=== PATIENT | female | born 1950 | race Caucasian/White ===

== ENCOUNTER 2017-01-13 11:39 | Outpatient (CLI) | payer MEDICARE, OTHER ==
[~2017-01-13] VITALS: Ht 152.4 cm; Wt 105.3 kg
[~2017-01-13 11:39] MED LIST: ALEN70TA47 PO; ASP81CT PO; BUDE180A IH; CALC-250 PO; CLIN150C2 PO; DILT180C PO; HYDR-3454 PO; HYDR-3720 PO; MELO-195 PO; POTA10TA10 PO; POTA99TA18 PO; RANI-514 PO; RANI150T90 PO; SERT100T8 PO; SIMV40TA4 PO; TRIA1CAP4 PO
[2017-01-13] MEDS ORDERED: LISI10TA2 PO (11:53)
[2017-01-13 11:58] VITALS: BP 111/67
== END 2017-01-13 12:25 | disposition home or self-care (01) ==
LOC: PREOP 11:39
PROVIDERS: ATTEND Podiatrist Foot & Ankle Surgery
DX: Z01.818 Encounter for other preprocedural examination (principal); Z11.2 Encounter for screening for other bacterial diseases; M20.22 Hallux rigidus, left foot
CPT/HCPCS: 87081

== ENCOUNTER 2017-01-16 06:00 | Day surgery (SDC) | payer MEDICARE, OTHER ==
[~2017-01-16] VITALS: Ht 152.4 cm; Wt 105.3 kg
[~2017-01-16 06:00] MED LIST changes: +LISI10TA2 PO
--- OUTSIDE RECORDS SUMMARY | 2017-01-16 06:10 | XMS REPORT | Continuity of Care Document ---
Author Author [facility] Organization [facility] Address Unknown Phone Unavailable Care Team Providers Care Clerk Travel Reservations Name Role Phone BLAINE MOHAN MD PCP Insurance Providers Payer Name Policy Number Subscriber Name Relationship [employer] [id number] Kera Molina 18 Self / Same As Patient Enter Insurance Name [id number] Kera Molina 18 Self / Same As Patient Advance Directives Directive Response Recorded Date/Time Advance Directives No 01/13/17 11:51am Health Care Power of Marking Stitcher No 01/13/17 11:51am Organ Donor Yes 01/13/17 11:51am Resuscitation Status Full Code 01/13/17 11:51am Problems No problem information available. Medications Current Home Medications Medication Dose Units Route Directions Days/Qty Instructions Start Date Calcium Carbonate/Vitamin D3 1 Each 1 Each Oral Daily 01/28/13 Sertraline Hcl 100 Mg 100 Mg Oral Daily 01/28/13 Aspirin 81 Mg 81 Mg Oral Daily 01/28/13 Simvastatin 40 Mg 40 Mg Oral Bedtime 01/28/13 Alendronate Sodium 70 Mg 70 Mg Oral Weekly FRIDAY AM 01/28/13 Potassium Chloride 10 Meq 10 Meq Oral Twice A Day 12/18/15 Ranitidine Hcl (Ranitidine) 75 Mg 75 Mg Oral Daily 12/18/15 Triamterene/Hydrochlorothiazid 1 Each 1 Each Oral As Directed Lisinopril 10 Mg 10 Mg Oral Daily 01/13/17 Past Home Medications Medication Directions Ordered Status Potassium Gluconate 99 Mg Tablet.er, 99 Mg Oral Daily 01/28/13 Discontinued Ranitidine Hcl 150 Mg Tablet, 150 Mg Oral Daily 01/28/13 Discontinued Meloxicam (Mobic) 15 Mg Tablet, 1 Each Oral Daily 01/28/13 Discontinued Diltiazem Hcl (Cardizem Cd) 180 Mg Cap.sr.24h, 1 Each Oral Daily 01/28/13 Discontinued Budesonide 180 Mcg Aer.pow.ba, 1 - 2 Puff Inhalation As Needed 01/28/13 Discontinued Acetaminophen/Hydrocodone Bitart 1 Ea Tab, 1 Ea Oral Q 4 - 6 Hrs Prn Discontinued Clindamycin Hcl 150 Mg Capsule, 1 Cap Oral Four Times Daily 12/25/15 Discontinued Hydrocodone/Acetaminophen 1 Each Tablet, 1-2 Tab Oral Q4-6HR as needed for Pain 12/25/15 Discontinued Social History Social History Problem Response Recorded Date/Time Alcohol Use Denies Use 12/25/2015 7:00am Recreational Drug Use No 12/25/2015 7:00am Recent Foreign Travel [place] summer 201102/02/2013 12:15pm Recent Infectious Disease Exposure No 02/02/2013 12:15pm Hospitalization with Isolation Denies 02/04/2013 4:37pm Sexually Transmitted Disease No 01/13/2017 11:51am HIV/AIDS No 01/13/2017 11:51am Smoking Status Never a Smoker 01/13/2017 11:51am Recent Hopitalizations No 01/13/2017 11:51am Sexually Transmitted Disease No 01/13/2017 11:51am Hospitalization with Isolation Denies 02/04/2013 4:37pm Query Response Start Date Stop Date Smoking Status Never a Smoker Hospital Discharge Instructions No hospital discharge instructions. Plan of Care Discharge Date 01/13/17 12:25pm Prescriptions See Medication Section Functional Status No functional status results. Allergies, Adverse Reactions, Alerts Allergen Type Severity Reaction Status Last Updated Penicillins ([id number]) Allergy Unknown HIVES, SWELLING Active 01/13/17 Immunizations No immunization records. Vital Signs Acute Vital Signs Vital Response Date/Time Pulse Rate (adult) 68 bpm (60 - 90) 01/13/2017 11:58am Respiratory Rate 16 bpm (12 - 24) 01/13/2017 11:58am O2 Sat by Pulse Oximetry 98 % (88 - 100) 01/13/2017 11:58am Blood Pressure 111/67 mm Hg 01/13/2017 11:58am Blood Pressure Mean 82 mm Hg 01/13/2017 11:58am Pain Numeric Pain Scale 0-No Pain 01/13/2017 11:58am Height (Feet) 5 feet 01/13/2017 11:45am Height (Inches) 0.00 inches 01/13/2017 11:45am Height (Calculated Centimeters) 152.854455 cm 01/13/2017 11:45am Weight (Pounds) 232 pounds 01/13/2017 11:45am Weight (Ounces) 1.0 oz 01/13/2017 11:45am Weight (Calculated Grams) 465198.78 gm 01/13/2017 11:45am Weight (Calculated Kilograms) 105.609749 kilograms 01/13/2017 11:45am Calculated BMI 45.3 01/13/2017 11:45am Results No known relevant diagnostic tests, laboratory data and/or discharge summary. Procedures No known history of procedures. Encounters Encounter Location Arrival/Admit Date Discharge/Depart Date Attending Provider Registered Clinic [facility] 01/13/17 11:39am JORDEN BUCK DPM
--- OUTSIDE RECORDS SUMMARY | 2017-01-16 06:10 | XMS REPORT | Continuity of Care Document ---
Author Author [facility] Organization [facility] Address Unknown Phone Unavailable Care Team Providers Care Railroad Track Inspector Name Role Phone BLAINE MOHAN MD PCP Insurance Providers Payer Name Policy Number Subscriber Name Relationship [employer] [id number] Kera Molina 18 Self / Same As Patient Enter Insurance Name [id number] Kera Molina 18 Self / Same As Patient Advance Directives Directive Response Recorded Date/Time Advance Directives No 01/13/17 11:51am Health Care Power of Cds Sales Advisor No 01/13/17 11:51am Organ Donor Yes 01/13/17 [...] Type Severity Reaction Status Last Updated Penicillins ([id number]) Allergy Unknown HIVES, SWELLING Active 01/13/17 Immunizations [...] 0.00 inches 01/13/2017 11:45am Height (Calculated Centimeters) 152.826311 cm 01/13/2017 11:45am Weight (Pounds) 232 pounds 01/13/2017 11:45am Weight (Ounces) 1.0 oz 01/13/2017 11:45am Weight (Calculated Grams) 124907.78 gm 01/13/2017 11:45am Weight (Calculated Kilograms) 105.583487 kilograms 01/13/2017 11:45am Calculated BMI 45.3 01/13/2017 11:45am Results No known relevant diagnostic tests, laboratory data and/or discharge summary. Procedures No known history of procedures. Encounters Encounter Location Arrival/Admit Date Discharge/Depart Date Attending Provider Registered Clinic [facility] 01/13/17 11:39am JORDEN BUCK DPM
[2017-01-16 06:30] VITALS: BP 145/78
[2017-01-16] MEDS ORDERED: CLINDAMYCIN 600 MG/50 ML IVPB 50 ML IV ONE ×2 (06:37→07:00)
[2017-01-16] MEDS ORDERED: MIDAZOLAM 2 MG/2 ML (VERSED) VIAL IV ONE (06:45)
[2017-01-16] MEDS ORDERED: FAMOTIDINE 20MG/2ML IV (PEPCID) IV ONE (06:45)
[2017-01-16] MEDS: LACTATED RINGERS 1,000 ML IV PRN ×2 (06:45→08:30)
[2017-01-16] MEDS ORDERED: fentaNYL INJECTION 100 MCG/2 ML AMP ONE (06:55)
[2017-01-16] MEDS ORDERED: MIDAZOLAM 2 MG/2 ML (VERSED) VIAL ONE (06:55)
[2017-01-16] MEDS ORDERED: LIDOCAINE PF 2% 10 ML (XYLOCAINE) AMP ONE (06:55)
[2017-01-16] MEDS ORDERED: ROCURONIUM 50 MG/5 ML (ZEMURON) VIAL IV ONE (06:55)
[2017-01-16] MEDS ORDERED: proPOfol 200 MG/20 ML (DIPRIVAN) VIAL IV ONE (06:55)
[2017-01-16] MEDS ORDERED: ONDANSETRON 4 MG/2 ML (SDV) Z0FRAN ONE (06:55)
[2017-01-16] MEDS ORDERED: LIDOCAINE JELLY 2% (XYLOCAINE) 5 ML TUBE ONE (06:55)
[2017-01-16] MEDS ORDERED: LACTATED RINGERS 1,000 ML IV ONE ×3 (06:55→09:51)
[2017-01-16] MEDS ORDERED: LIDOCAINE 1% INJ 20 ML (XYLOCAINE) VIAL ONE (07:14)
[2017-01-16] MEDS ORDERED: BUPIVACAINE 0.5% 30 ML (SENSORCAINE) VIAL ONE (07:14)
--- NOTE | 2017-01-16 07:41 | Progress Note-Pre Operative ---
Pre-Operative Progress Note H&P Reviewed The H&P was reviewed, patient examined and no changes noted. Date H&P Reviewed: Jan 16, 2017 Time H&P Reviewed: 07:41 Pre-Operative Diagnosis: Hallux Rigidus Left JORDEN BUCK DPM Jan 16, 2017 7:41 am
[2017-01-16] MEDS ORDERED: SEVOFLURANE (ULTANE) 15 ML INHAL SOLN ONE ×9 (08:33→09:57)
[2017-01-16] MEDS ORDERED: morphine INJ 10 MG/ML 1ML (SYR OR VIAL) ONE ×2 (08:38→09:57)
[2017-01-16] MEDS ORDERED: DEXAMETHASONE PF 10 MG/ML (DECADRON) VIAL ONE (09:40)
[2017-01-16] MEDS ORDERED: KETOROLAC 30 MG/ML VIAL ONE (09:53)
[2017-01-16] MEDS ORDERED: LACTATED RINGERS 1,000 ML IV SCH (09:58)
--- NOTE | 2017-01-16 09:58 | Progress Note-Post Operative ---
Post-Operative Progess Note Pre-Operative Diagnosis Hallux Rigidus Left Post-Operative Diagnosis Same Post-Op Procedure Note Date of Procedure: Jan 16, 2017 Name of Procedure: Arthrodesis of the left 1st metatarsal phalangeal joint Anesthesia Type General Estimated blood loss (mL): Minimal Specimen(s) collected None JORDEN BUCK DPM Jan 16, 2017 9:57 am
[2017-01-16] MEDS ORDERED: HYDROcodone/APAP 5 MG/325 MG (LORTAB) TAB PO PRN (10:00)
[2017-01-16] MEDS ORDERED: ONDANSETRON 4 MG/2 ML (SDV) Z0FRAN IVP PRN (10:00)
[2017-01-16] MEDS ORDERED: HYDR-3812 PO (10:01)
[2017-01-16] MEDS ORDERED: CLIN150C2 PO (10:01)
[2017-01-16] MEDS ORDERED: ONDANSETRON 4 MG/2 ML (SDV) Z0FRAN IV ONE (10:45)
[2017-01-16] MEDS ORDERED: fentaNYL INJECTION 100 MCG/2 ML AMP IV PRN (10:45)
[2017-01-16] MEDS ORDERED: morphine INJ 10 MG/ML 1ML (SYR OR VIAL) IV PRN (10:45)
[2017-01-16 10:55] VITALS: BP 109/72
[2017-01-16 11:25] VITALS: BP 120/67
[2017-01-16 11:55] VITALS: BP 119/70
--- NOTE | 2017-01-16 13:32 | Physical Therapy Ortho Eval ---
PT Orthopedic Evaluation Type of Surgery left hallux rigidus Prior Level of Function Current Living Status: Spouse Locomotion (Upon Admit): Independent Established Durable Medical Eq: Front Wheeled Walker Subjective Subjective Patient c/o dizziness, however, agrees to PT. Entry Into Home: Stairs Without Railing Steps Into Home: 3 Objective Objective PWB left foot with heel contact only with surgical shoe in place Motor Control Motor Control: Motor Control WNL ROM ROM: WFL, except focal deficit Strength Strength: WFL Transfer Transfers (B, C, W/C) (FIM): 6 Gait Gait Assistive Device: FWW Weight Bearing Restriction: Partial Weight Bearing Gait (FIM): 2 Distance (FIM): 6=002-74 ft Distance: 75' Gait Level of Assist: 6 Treatment Rendered Treatment: Gait Train, Step Train Assessment/Goals Goal Time Frame: 1 Visit Safe Ambulation: Yes Plan Treatment Plan: Discharge PT/Family Agrees to Plan: Yes Time Time In: 1255 Time Out: 1315 Total Billed Treatment Time: 20 Billed Treatment Time 1 visit EVLowC 20 min Yes PT/OT Therapy GCodes Therapy Functional Limitation: Physical Therapy Test(s)/Tool used to determine: Level of Assistance Scale Functional Limitation-Current Charge Code: MOBCUR Modifier: CI Functional Limitation-Goal Charge Code: MOBGOAL Modifier: CI Functional Limitation-D/C Charge Codes: MOBDC Modifier: CI HAKEEM CARDENAS PT Jan 16, 2017 13:32
--- NOTE | 2017-01-16 18:23 | Diagnostic Imaging Report ---
EXAMINATION: Intraoperative views of the left foot. FLUOROSCOPY TIME: 2 seconds were provided to the OR. IMPRESSION: Provided images demonstrate screws across the first metatarsophalangeal joints and internal fixations with small screws and wires along the heads of the second and fifth metatarsals. There is also plate and screw fusion along the tarsometatarsal joint at the base of the great toe. Dictated by: Dictated on workstation # [id number]
--- NOTE | 2017-01-17 11:47 | OPERATIVE REPORT ---
PROCEDURE PHYSICIAN: LEOLA BUCK DATE OF PROCEDURE: 01/16/2017 SURGEON: Leola Buck DPM. PREOPERATIVE DIAGNOSIS: Hallux rigidus, left POSTOPERATIVE DIAGNOSIS: Hallux rigidus, left PROCEDURE: Arthrodesis left first metatarsophalangeal joint. WOUND CLASS: Clean. ANESTHESIA: General. HEMOSTASIS: Pneumatic thigh tourniquet at 300 mmHg. INDICATION: This 66-year-old female presents complaining of a painful left great toe joint. Conservative therapy has met with unsatisfactory results and the patient is agreeable to surgical intervention after risks and complications were discussed at length. No guarantees were extended to the patient and she is willing to proceed. PROCEDURE: The patient was brought back to operating table, placed in a secure, supine position. Appropriate timeout was performed. A pneumatic thigh tourniquet was placed on the left lower extremity. General anesthetic was then induced. The left foot was then prepped and draped in normal sterile manner. The left foot was then elevated, allowed to exsanguinate after which the tourniquet was inflated to 300 mmHg. Attention was then directed to the dorsal aspect left first metatarsophalangeal joint where a 5 cm longitudinal linear incision was created. The incision was deepened in the same plane with great care to identify and retract all vital neurovascular structures. Only necessary blood vessels were cauterized as encountered. The incision was deepened down to the capsular tissue just medial to the extensor hallucis longus where a longitudinal capsulotomy was performed. The capsular tissue was reflected and dissection was carried out to the metatarsophalangeal joint where full thickness degeneration of articular cartilage was then identified to approximately 80% of the first metatarsal head and essentially all the base of the proximal phalanx. The remaining cartilage was curetted as well as fenestration performed with a 0.045 K wire to the base of the proximal phalanx and head of the first metatarsal. A rongeur was also utilized to further contour and smooth the dorsal medial and lateral spurring to the base of the proximal phalanx. A power bur and a power sagittal saw was utilized to reduce the bony eminence to the dorsal medial and lateral aspect of the first metatarsal head. The wound was flushed. An attempt to remove the 28-gauge monofilament wire from the proximal phalanx diaphysis was performed. Only a portion of the wire was able to be removed. An attempt was also made to remove the K wire from the first metatarsal which was under successful. Next two 3-0 partially threaded screws were placed across the arthrodesis site. The first one proximal medial to distal lateral; that one was of 30 mm of length and the second through a percutaneous hole to the medial aspect of the proximal phalanx was directed from medial distal to proximal lateral and what is 3-0 screw of 26 mm of length. Excellent bony apposition and fixation was appreciated. Intraoperative C-arm confirmed digital alignment. The wound was flushed with copious amounts of normal saline. The instrumentation was withdrawn from the foot after which closure was performed in layers. Deep closure was performed with 3-0 Vicryl, superficial with 4-0 Vicryl, skin closure with 4-0 Prolene in a horizontal mattress type stitch to both the dorsal and medial wounds. Postoperative injection consisted of 12 mL of 0.5% Marcaine injected in a Mosqueda block to the left lower extremity. Also 10 mg of dexamethasone was injected the first intermetatarsal space of the left foot. Postoperative dressing consisted of Betadine soaked Adaptic, sterile 4 x 4, sterile Kerlix, all secured with a Coban wrap. The patient tolerated the anesthesia and procedure well and was transported from the operating room to the recovery area with vital signs stable and vascular status intact to all digits of the left foot. She was given a prescription for Keflex and hydrocodone. She is to follow-up in my office in 10 days period of time or sooner if necessary Job ID: [id number] Dictated Date: 01/16/2017 10:07:03 Highway Painter Helper Date: 01/17/2017 11:38:34 / antony
== END 2017-01-16 13:20 | disposition home or self-care (01) ==
LOC: SDC 06:00
PROVIDERS: ATTEND Podiatrist Foot & Ankle Surgery
DX: M20.22 Hallux rigidus, left foot (principal)

== ENCOUNTER 2017-04-29 08:38 | Outpatient (CLI) | payer MEDICARE, OTHER ==
[~2017-04-29] VITALS: Ht 152.4 cm; Wt 106.6 kg
[~2017-04-29 08:38] MED LIST changes: +HYDR-3812 PO
[2017-04-29 08:47] VITALS: BP 138/84
[2017-04-29] MEDS ORDERED: CALC600T12 PO (08:54)
== END 2017-04-29 09:00 | disposition home or self-care (01) ==
LOC: PREOP 08:38
PROVIDERS: ATTEND Podiatrist Foot & Ankle Surgery
DX: Z01.818 Encounter for other preprocedural examination (principal); Z11.2 Encounter for screening for other bacterial diseases; M20.22 Hallux rigidus, left foot
CPT/HCPCS: 87081

== ENCOUNTER 2017-05-09 11:19 | Day surgery (SDC) | payer MEDICARE, OTHER ==
[~2017-05-09] VITALS: Ht 152.4 cm; Wt 106.6 kg
[~2017-05-09 11:19] MED LIST changes: +CALC600T12 PO
[2017-05-09] MEDS ORDERED: CLINDAMYCIN 600 MG/4ML (CLEOCIN) VIAL ONE (11:58)
[2017-05-09] MEDS ORDERED: FAMOTIDINE 20MG/2ML IV (PEPCID) IV ONE (12:00)
--- NOTE | 2017-05-09 12:10 | Physical Therapy Progress Note ---
Therapy Progress Note Pt to have foot surgery later this date. Visited with her about mobility with NWB status post surgery. She noted she has had a similar surgery in the past and has used a walked and knee scooter to mobilize. Feels she does not need PT instruction at this time as it is a reoccurring status. Reviewed NWB status and safety with mobility post surgery. Visit only, no treatment or evaluation rendered. JOSE BRYANT PT May 09, 2017 12:10
[2017-05-09] MEDS ORDERED: NS (IVPB) 50 ML ONE (12:12)
[2017-05-09 12:34] VITALS: BP 134/68
[2017-05-09] MEDS: LACTATED RINGERS 1,000 ML IV PRN ×2 (12:36→15:30)
[2017-05-09] MEDS ORDERED: CLINDAMYCIN 600 MG/NS 50 ML IVPB IV ONE ×2 (12:45)
--- NOTE | 2017-05-09 12:47 | Progress Note-Pre Operative ---
Pre-Operative Progress Note H&P Reviewed The H&P was reviewed, patient examined and no changes noted. Date Seen by Provider: May 09, 2017 Time Seen by Provider: 12:46 Date H&P Reviewed: May 09, 2017 Time H&P Reviewed: 12:46 Pre-Operative Diagnosis: Hallux Limitus left, Failure of Hardware JORDEN BUCK DPM May 09, 2017 12:47 pm
[2017-05-09] MEDS ORDERED: proPOfol 200 MG/20 ML (DIPRIVAN) VIAL IV ONE (12:52)
[2017-05-09] MEDS ORDERED: fentaNYL INJECTION 100 MCG/2 ML AMP ONE ×2 (12:52→15:33)
[2017-05-09] MEDS ORDERED: LIDOCAINE PF 2% 5 ML (XYLOCAINE) VIAL ONE (12:52)
[2017-05-09] MEDS ORDERED: SEVOFLURANE (ULTANE) 15 ML INHAL SOLN ONE ×3 (12:52→15:37)
[2017-05-09] MEDS ORDERED: DEXAMETHASONE PF 10 MG/ML (DECADRON) VIAL ONE (12:52)
[2017-05-09] MEDS ORDERED: LACTATED RINGERS 1,000 ML IV ONE ×2 (12:52→15:37)
[2017-05-09] MEDS ORDERED: ONDANSETRON 4 MG/2 ML (SDV) Z0FRAN ONE ×2 (12:52→15:51)
[2017-05-09] MEDS ORDERED: MIDAZOLAM 2 MG/2 ML (VERSED) VIAL ONE (12:52)
[2017-05-09] MEDS ORDERED: BUPIVACAINE 0.5% 30 ML (SENSORCAINE) VIAL ONE (13:22)
[2017-05-09] MEDS ORDERED: LIDOCAINE 1% INJ 20 ML (XYLOCAINE) VIAL ONE (13:23)
[2017-05-09] MEDS ORDERED: morphine INJ 10 MG/ML 1ML (SYR OR VIAL) ONE (15:50)
[2017-05-09] MEDS ORDERED: LACTATED RINGERS 1,000 ML IV SCH (16:09)
--- NOTE | 2017-05-09 16:09 | Progress Note-Post Operative ---
Post-Operative Progess Note Surgeon (s)/Academic Department Chair (s) Surgeon JORDEN BUCK DPM Academic Department Chair: none Pre-Operative Diagnosis Hallux Limitus left, Failure of Hardware Post-Operative Diagnosis Same Procedure & Operative Findings Date of Procedure 05/09/17 Procedure Performed/Findings Removal of failed hardware Arthrodesis of the left 1st MTPJ Anesthesia Type General Estimated Blood Loss Estimated blood loss (mL): Minimal Specimens/Packing Specimens Removed None Packing: None JORDEN BUCK DPM May 09, 2017 4:09 pm
[2017-05-09] MEDS ORDERED: HYDR-3812 PO (16:14)
[2017-05-09] MEDS ORDERED: CLIN150C2 PO (16:14)
[2017-05-09] MEDS ORDERED: HYDROcodone/APAP 5 MG/325 MG (LORTAB) TAB PO PRN (16:15)
[2017-05-09] MEDS ORDERED: morphine INJ 10 MG/ML 1ML (SYR OR VIAL) IVP PRN (16:15)
[2017-05-09] MEDS ORDERED: ONDANSETRON 4 MG/2 ML (SDV) Z0FRAN IVP PRN (16:15)
--- NOTE | 2017-05-09 16:57 | Diagnostic Imaging Report ---
INDICATION: Postoperative evaluation of the left foot. AP and lateral views of the left foot are obtained with comparison made to intraoperative images obtained on 12/25/2015. FINDINGS: There has been additional instrumentation with fusion along the great toe from the first tarsometatarsal joint through the metatarsophalangeal joint. There is also persistent K-wire in the distal fifth metatarsal transfixing mildly angulated fracture. Small screw is also present within the distal second metatarsal. No definite acute abnormality or complication is seen. IMPRESSION: Extensive postoperative changes in the foot without evidence of acute abnormality or adverse change. Dictated by: Dictated on workstation # [id number]
[2017-05-09 17:05] VITALS: BP 156/70
[2017-05-09 17:35] VITALS: BP 129/86
[2017-05-09 18:25] VITALS: BP 129/86
--- NOTE | 2017-05-09 23:46 | OPERATIVE REPORT ---
DATE OF SERVICE: PREOPERATIVE DIAGNOSES: 1. Failed hardware left first metatarsophalangeal joint arthrodesis. 2. Hallux Rigidus left. POSTOPERATIVE DIAGNOSES: 1. Failed hardware left first metatarsophalangeal joint arthrodesis. 2. Hallux Rigidus left. PROCEDURES: 1. Removal of failed hardware. 2. Revisional arthrodesis to the left first metatarsophalangeal joint with plate and screw fixation. WOUND CLASS: Clean. ANESTHESIA: General. HEMOSTASIS: Pneumatic ankle tourniquet at 250 mmHg. INDICATION: This 66-year-old female presents complaining of pain through the left first metatarsophalangeal joint. The screw fixation had not fused the metatarsophalangeal joint. Hardware also failed and painful for the patient especially with weightbearing and ambulation. She is agreeable to surgical intervention after risks and complications were discussed at length. No guarantees were extended to the patient, and she is willing to proceed. DESCRIPTION OF PROCEDURE The patient was brought back to the operating table, placed in a secure supine position. Appropriate timeout was performed. General anesthetic was then induced. The left foot was then prepped and draped in normal sterile manner. The left foot was then elevated and allowed to exsanguinate after which the tourniquet was inflated to 250 mmHg. Attention was then directed to the dorsal aspect of the left first metatarsophalangeal joint where a 6 cm longitudinal linear incision was created. Along the previous incision site, the incision was deepened carefully in the same plane with great care to identify or retract all vital neurovascular structures. Only the necessary blood vessels were cauterized as encountered. The incision was deepened down to the capsule tissue where a longitudinal capsulotomy was performed. The capsule tissue was retracted medial and laterally exposing the dorsal aspect of the first metatarsal head and base of the proximal phalanx. The K wire that was on the dorsal aspect of the first metatarsal was identified and a small osteotome was utilized to gain access to the dorsal aspect of the K wire. The wire was then backed out utilizing needle nose pliers. The wound was flushed with copious amounts of normal saline. The cannulated screw to the distal and medial aspect of the arthrodesis site was also removed carefully. The wound was flushed with copiously amounts of normal saline. Access to the first metatarsophalangeal joint was then gained at this point. There is incomplete arthrodesis noted. Utilizing the rongeur and curette, the head of the first metatarsal was further contoured and smoothed to accommodate the corrected position of the left hallux as well as improve chances for arthrodesis. The same procedure was performed to the base of the proximal phalanx. Next, curettage was then performed once again after which fenestration was performed with a 1 mm wire to the base of the proximal phalanx as well as the head of the first metatarsal. Appropriate alignment was appreciated at this time and a guidewire was driven from proximal medial to distal lateral across the arthrodesis site and a 4-0 lag screw of 28 mm in length was driven across the area. Next, a Trilliant gridlock plating system was then applied to the dorsal aspect of the first metatarsophalangeal joint. The distal screws were 3-0 cannulated, 20 and 14 mm of length. Next, the nonlocking compression screw was a 3-0, 16 mm screw and the remaining 2 screws were locking 3-0 with 14 and 16 mm of length. Excellent bony apposition and fixation was appreciated at this time. The tourniquet was released noting appropriate cap refill time and appropriate bleeding noted. The wound was flushed with copious amounts of normal saline and closure was then performed in layer. Deep closure was performed with 3-0 Vicryl, superficially with 4-0 Vicryl and skin closed with 4-0 Prolene in a horizontal mattress-type stitch. Postoperative injection consisted of 16 mL of 0.5% Marcaine injected into the Mosqueda block. Postoperative dressing consisted of betadine soaked Adaptic, sterile 4 x 4x, sterile Kerlix, all secured with a Coban wrap. The patient tolerated the anesthesia and procedure well and was transported from the operating room to the recovery area with vital signs stable and vascular status intact to all digits of the left foot. She was given a prescription for clindamycin as well as hydrocodone. She will follow up in the office in approximately 10 days' time or sooner if necessary. Job ID: [id number] DocumentID: [id number] Dictated Date: 05/09/2017 16:31:43 Target Trimmer Date: 05/09/2017 23:45:53 Dictated By: DUSTIN OLIVIA
== END 2017-05-09 18:25 | disposition home or self-care (01) ==
LOC: SDC 11:19
PROVIDERS: ATTEND Podiatrist Foot & Ankle Surgery
DX: M20.22 Hallux rigidus, left foot (principal); Z47.2 Encounter for removal of internal fixation device; I10 Essential (primary) hypertension; E78.00 Pure hypercholesterolemia, unspecified; E66.01 Morbid (severe) obesity due to excess calories; Z68.42 Body mass index [BMI] 45.0-49.9, adult; Z79.899 Other long term (current) drug therapy
CPT/HCPCS: 73620

== ENCOUNTER → 2020-09-19 | Outpatient (CLI) | payer MEDICARE, OTHER ==
[~2020-09-19] MED LIST changes: +ACHD5005 PO; -CALC600T12 PO; +CLC600T PO; -HYDR-3454 PO; +HYDR-3455 PO; -HYDR-3812 PO; -RANI-514 PO; +RANI-607 PO
== END ==
LOC: LAB FS 10:19
PROVIDERS: ATTEND Podiatrist
DX: Z01.812 Encounter for preprocedural laboratory examination (principal); Z20.828 Contact with and (suspected) exposure to other viral communicable diseases
CPT/HCPCS: 87635